=== PATIENT | male | born 1995 | race American Indian/Alaskan Native ===

== ENCOUNTER 2018-09-19 15:41 | Emergency (ER) | payer OTHER ==
[2018-09-19 15:48] VITALS: BP 122/67
--- NOTE | 2018-09-19 16:42 | Emergency Department Report ---
Blank Doc - Documentation Documentation: Left knee pain x 1 day. Injured left knee after running and coolided into brot her and then fell. Pain increasing Left knee swollen and TTP Xray left knee
--- NOTE | 2018-09-19 17:12 | XRay Report ---
Left knee, 3 views INDICATION: Knee pain following injury today. FINDINGS: The joint space is maintained. There is no fracture or dislocation. No spurring or arthriti c change. No bone lesion or periostitis. No significant abnormality. IMPRESSION: Negative study Signer Name: Rico Erickson MD Signed: 09/19/2018 5:08 PM Workstation Name: [id number]
--- NOTE | 2018-09-19 18:49 | Emergency Department Report ---
ED Extremity Problem HPI - General Chief complaint: Extremity Injury, Lower Stated complaint: LT KNEE PAIN Time Seen by Provider: 09/19/18 16:38 Source: patient Mode of arrival: Ambulatory Limitations: No Limitations - History of Present Illness Initial comments: Patient is a 22-year-old male who presents to emergency room with complaints of left knee pain that began yesterday. He states he has noticed some edema to the left knee. Pt states he was running full speed at night playing with his siblings when he collided knees with his brother. He has been ambulatory with some discomfort. He has never injured this knee previously. He has not taken anything for the discomfort. He denies any past medical history or allergies to medications. - Related Data Previous Rx's Medication Instructions Recorded Last Taken Type Ibuprofen [Motrin 800 MG tab] 800 mg PO Q8HR PRN #14 tablet 09/19/18 Unknown Rx Allergies Allergy/AdvReac Type Severity Reaction Status Date / Time No Known Allergies Allergy Verified 09/19/18 19:15 ED Review of Systems ROS: Stated complaint: LT KNEE PAIN Other details as noted in HPI Comment: All other systems reviewed and negative ED Past Medical Hx - Social History Smoking Status: Never Smoker Substance Use Type: None - Medications Home Medications: Home Medications Medication Instructions Recorded Confirmed Last Taken Type Ibuprofen [Motrin 800 MG tab] 800 mg PO Q8HR PRN #14 tablet 09/19/18 Unknown Rx ED Physical Exam - General Limitations: No Limitations General appearance: alert, in no apparent distress - Head Head exam: Present: atraumatic, normocephalic - Eye Eye exam: Present: normal appearance, PERRL - ENT ENT exam: Present: mucous membranes moist - Extremities Exam Extremities exam: Present: other (mild TTP over the left lateral knee, trace edema present to the anterior knee, no ecchymosis, no erythema, no increased warmth, no obvious joint laxity, FROM of the left knee with discomfort upon flexion, no deformity, 2+ radial pulse, sensation intact) - Neurological Exam Neurological exam: Present: alert, oriented X3 - Psychiatric Psychiatric exam: Present: normal affect, normal mood - Skin Skin exam: Present: warm, dry, intact ED Course Vital Signs 09/19/18 15:47 Temperature 98.5 F Pulse Rate 82 Respiratory 18 Rate Blood Pressure 122/67 O2 Sat by Pulse 100 Oximetry ED Medical Decision Making - Lab Data Vital Signs 09/19/18 15:47 Temperature 98.5 F Pulse Rate 82 Respiratory 18 Rate Blood Pressure 122/67 O2 Sat by Pulse 100 Oximetry - Radiology Data Radiology results: report reviewed cc: PAMELLA GARDNER Fluoro Time In Minutes: Left knee, 3 views INDICATION: Knee pain following injury today. FINDINGS: The joint space is maintained. There is no fracture or dislocation. No spurring or arthritic change. No bone lesion or periostitis. No significant abnormality. IMPRESSION: Negative study Signer Name: Rico Erickson MD Signed: 09/19/2018 5:08 PM Workstation Name: [id number] Transcribed By: JED Dictated By: Rico Erickson MD Electronically Authenticated By: Rico Erickson MD Signed Date/Time: 09/19/18 170 - Medical Decision Making Patient is a 22-year-old male who presents to emergency room with complaints of left knee pain that began yesterday. He states he has noticed some edema to the left knee. Pt states he was running full speed at night playing with his siblings when he collided knees with his brother. He has been ambulatory with some discomfort. He has never injured this knee previously. He has not taken anything for the discomfort. He denies any past medical history or allergies to medications. on exam: mild TTP over the left lateral knee, trace edema present to the anterior knee, no ecchymosis, no erythema, no increased warmth, no obvious joint laxity, FROM of the left knee with discomfort upon flexion, no deformity, 2+ radial pulse, sensation intact. XR of the left knee with no acute process. Hector wrap placed on the left knee while in the emergency department. Given prescription for anti-inflammatory. advised to take medication as prescribed as needed. discussed to use Hector wrap as needed. Discussed rice therapy with patient. advised to follow-up with an orthopedic doctor in the next 3 days. return to the emergency room for any new or worsening symptoms. - Differential Diagnosis strain, sprain, fx, dislocation Critical care attestation.: If time is entered above; I have spent that time in minutes in the direct care of this critically ill patient, excluding procedure time. ED Disposition Clinical Impression: Left knee pain Qualifiers: Chronicity: acute Qualified Code(s): M25.562 - Pain in left knee Disposition: DC-01 TO HOME OR SELFCARE Is pt being admited?: No Does the pt Need Aspirin: No Condition: Stable Instructions: Knee Sprain (ED), RICE Therapy (ED) Additional Instructions: Take medication as prescribed as needed. Use Hector wrap as needed. may use ice, elevation, rest, compression. Follow-up with an orthopedic doctor in the next 2-3 days. return to the emergency room for any new or worsening symptoms. Prescriptions: Ibuprofen [Motrin 800 MG tab] 800 mg PO Q8HR PRN #14 tablet PRN Reason: pain Referrals: ALEX CASAS MD [Staff Physician] - 2-3 Days [facility] [Provider Group] - 2-3 Days Forms: Work/School Release Form(ED) Time of Disposition: 18:55 Print Language: GUINEAN
[2018-09-19] MEDS ORDERED: IBUPROFEN PO ONE (19:15)
[2018-09-19] MEDS ORDERED: IBUPROFEN ONE (19:16)
== END 2018-09-19 19:32 | disposition home or self-care (01) ==
LOC: ED 15:41
DX: M25.562 Pain in left knee (principal); Z79.899 Other long term (current) drug therapy; W51.XXXA Accidental striking against or bumped into by another person, initial encounter; Y93.89 Activity, other specified; Y92.89 Other specified places as the place of occurrence of the external cause; Y99.8 Other external cause status